=== PATIENT | female | born 2000 | race Two or more races ===

== ENCOUNTER 2022-05-10 21:52 | Emergency (ER) | payer MEDICAID ==
--- NOTE | 2022-05-10 22:45 | NUR ---
CALLED TO TRIAGE NO ANSWER
--- NOTE | 2022-05-10 23:00 | NUR ---
NO IN WAITING ROOM
== END 2022-05-10 23:12 | disposition left against medical advice (07) ==
LOC: ER 21:55
DX: Z53.21 Procedure and treatment not carried out due to patient leaving prior to being seen by health care provider (principal)